=== PATIENT | female | born 1955 | race Caucasian/White ===

== ENCOUNTER 2019-03-27 12:09 | Emergency (ER) | payer MEDICARE ==
[~2019-03-27] VITALS: Ht 170.2 cm; Wt 80.0 kg
[2019-03-27 12:12] VITALS: BP 166/74
[2019-03-27] MEDS ORDERED: SULF1TAB49 PO (15:05)
== END 2019-03-27 15:31 | disposition home or self-care (01) ==
LOC: ER 12:10
DX: S81.801A Unspecified open wound, right lower leg, initial encounter (principal); L03.115 Cellulitis of right lower limb; Z79.2 Long term (current) use of antibiotics; Z85.3 Personal history of malignant neoplasm of breast; Z98.890 Other specified postprocedural states; X58.XXXA Exposure to other specified factors, initial encounter; Y93.89 Activity, other specified; Y92.89 Other specified places as the place of occurrence of the external cause; Y99.8 Other external cause status
CPT/HCPCS: 99283

== ENCOUNTER 2019-06-06 06:55 | Inpatient (IN) | payer MEDICARE ==
[~2019-06-06] VITALS: Ht 170.2 cm; Wt 82.7 kg
[2019-06-06] MEDS ORDERED: ondansetron/PF 4mg/2ml inj IV ONE (07:25)
[2019-06-06] MEDS ORDERED: vancomycin/NS 1 GM ADD-VANTAGE 250 ML IV ONE (07:25)
[2019-06-06] MEDS ORDERED: ondansetron 4mg rapidly disintigrating tab PO ONE (08:05)
--- NOTE | 2019-06-06 08:32 | NUR ---
picc nurse is coming in about 20 min. Pt aware. have attempted twice and only see one other decent vein when using the ultrasound machine on her left arm. pt refused to let me use her hand. her right arm is very swollen and red. pt has hx of bialteral mastectomy's times 2.
[2019-06-06] MEDS ORDERED: morphine 4 MG/ML inj SYRINge IM ONE (08:45)
[2019-06-06 09:21] LABS: BASOPHILS % (AUTO) 0.2 % (0-1); EOSINOPHILS % (AUTO) 0.1 % (0-6); HEMATOCRIT 41.4 % (35.0-45.0); HEMOGLOBIN 14.2 g/dl (12.0-16.0); LYMPHOCYTES # (AUTO) 0.8 X10'3 (1.1-4.8); LYMPHOCYTES % (AUTO) 5.4 % (21-51); MEAN CORPUSCULAR HEMOGLOBIN 33.6 PG (27.0-31.0); MEAN CORPUSCULAR HGB CONC 34.3 g/dL (33.0-36.5); MEAN PLATELET VOLUME 6.8 FL (7.4-10.4); MONOCYTES # (AUTO) 0.7 X10'3 (0-0.9); MONOCYTES % (AUTO) 5.2 % (2-12); NEUTROPHILS # (AUTO) 12.4 X10'3 (1.8-7.7); NEUTROPHILS % (AUTO) 89.1 % (42-75); PLATELET COUNT 235 X10'3 (140-440); RED BLOOD COUNT 4.22 X10'6 (4.20-5.60); RED CELL DISTRIBUTION WIDTH 13.2 % (11.5-14.5); WHITE BLOOD COUNT 13.9 X10'3 (4.5-11.0)
[2019-06-06] MEDS ORDERED: acetaminophen 325mg tablet PO ONE (09:35)
[2019-06-06 09:42] LABS: PARTIAL THROMBOPLASTIN TIME 27 SECONDS (22-32)
[2019-06-06 09:44] LABS: ALANINE AMINOTRANSFERASE 31 U/L (12-78); ALKALINE PHOSPHATASE 77 IU/L (46-116); ANION GAP 10 (8-16); ASPARTATE AMINO TRANSFERASE 22 U/L (10-37); BILIRUBIN,TOTAL 0.6 MG/DL (0.1-1.0); BLOOD UREA NITROGEN 9 MG/DL (7-18); BUN/CREATININE RATIO 11.7 (6.6-38.0); CALCIUM 8.9 MG/DL (8.5-10.1); CHLORIDE 102 MMOL/L (99-107); CREATININE 0.77 MG/DL (0.40-0.90); GLUCOSE 96 MG/DL (70-104); MAGNESIUM 1.8 MG/DL (1.5-2.4); POTASSIUM 3.6 MMOL/L (3.5-5.1); SODIUM 137 MMOL/L (135-145); TOTAL CARBON DIOXIDE 24.8 MMOL/L (24-32); TOTAL PROTEIN 7.9 G/DL (6.4-8.2); eGFR 75 ML/MIN
--- NOTE | 2019-06-06 09:51 | NUR ---
PT STATES HER ARM IS STARTING TO FEEL A LITTLE BETTER. GIVEN TYLENOL FOR FEVER.
--- NOTE | 2019-06-06 09:52 | NUR ---
PT WENT TO GET A URINE SAMPLE BUT WASN'T ABLE TO GET THE CAP OFF AND SO WAS NOT ABLE TO OBTAIN A SAMPLE.
[2019-06-06] MEDS ORDERED: ACET-2119 PO (10:40)
[2019-06-06] MEDS ORDERED: PRED5TAB PO (10:40)
[2019-06-06] MEDS ORDERED: metoclopramide 5 mg/ml inj IV PRN (10:55)
[2019-06-06] MEDS ORDERED: potassium Cl 20 mEq SR tablet PO PRN ×2 (10:55)
[2019-06-06] MEDS ORDERED: acetaminophen 325mg tablet PO PRN ×2 (10:55)
[2019-06-06] MEDS ORDERED: diphenhydrAMINE 25mg capsule PO PRN (10:55)
[2019-06-06] MEDS ORDERED: magnesium 2GM in 50ml NS 50 ML IV PRN (10:55)
[2019-06-06] MEDS ORDERED: mag hydrox/Alum hydrox/simeth 30ml oral suspension PO PRN (10:55)
[2019-06-06] MEDS ORDERED: magnesium Cl slow-release 64mg tablet PO PRN (10:55)
[2019-06-06] MEDS ORDERED: HYDROcodone/acetaminophen 5mg/325mg tablet PO PRN (10:55)
[2019-06-06] MEDS ORDERED: bisacodyl 10mg suppository rectal RC PRN (10:55)
[2019-06-06] MEDS ORDERED: magnesium hydroxide 30ml (MOM) UD suspension PO PRN (10:55)
[2019-06-06] MEDS ORDERED: magnesium 4gm in 100ml NS 100 ML IV PRN (10:55)
[2019-06-06] MEDS ORDERED: potassium CL 10mEq/100ml bag 100 ML IV PRN ×2 (10:55)
[2019-06-06] MEDS ORDERED: diphenhydrAMINE 50 mg/ml inj IV PRN (10:55)
[2019-06-06 11:35] LABS: PHOSPHORUS 2.5 MG/DL (2.3-4.5)
[2019-06-06] MEDS: normal saline 1000ml 1,000 ML IV SCH ×2 (11:55→20:54)
[2019-06-06] MEDS ORDERED: ASCO500C15 PO (13:00)
[2019-06-06] MEDS ORDERED: CHOL100046 PO (13:00)
[2019-06-06] MEDS ORDERED: ASPI-611 PO (13:00)
[2019-06-06] MEDS ORDERED: PRED20TA PO (13:00)
[2019-06-06 14:00] VITALS: BP 117/73
--- NOTE | 2019-06-06 14:45 | NUR ---
Patient in room [facility]. I have received report from NOMI So and had the opportunity to ask questions and assume patient care.
[2019-06-06 17:34] LABS: CLARITY,URINE CLEAR (Clear); COLOR,URINE YELLOW (Yellow); GLUCOSE, URINE NEGATIVE (Neg); KETONES,URINE NEGATIVE (Neg); LEUKOCYTE ESTERASE ,URINE TRACE (Neg); NITRITES, URINE NEGATIVE (Neg); OCCULT BLOOD,URINE NEGATIVE (Neg); PROTEIN,URINE NEGATIVE (Neg); UROBILINOGEN,URINE 0.2 E.U/dL (0.2-1.0)
[2019-06-06 17:38] LABS: URINE AMPHETAMINE SCREEN NEGATIVE (Neg); URINE BARBITUATE SCREEN NEGATIVE (Neg); URINE BENZODIAZEPINES SCREEN NEGATIVE (Neg); URINE CANNABINOID SCREEN NEGATIVE (Neg); URINE COCAINE SCREEN NEGATIVE (Neg); URINE METHADONE SCREEN NEGATIVE (Neg); URINE OPIATE SCREEN POSITIVE (Neg); URINE PHENCYCLIDINE SCREEN NEGATIVE (Neg)
[2019-06-06 17:40] LABS: UA COLLECTION TYPE NON-SPECIFIED
[2019-06-06 18:00] VITALS: BP 123/74
[2019-06-06 18:16] LABS: MUCUS STRANDS FEW /LPF (Neg); SQUAMOUS EPITHELIAL CELL,UR FEW /LPF (FEW)
[2019-06-06 18:20] LABS: BACTERIA,URINE 1+ /HPF (Neg); RBC,URINE 0-2 /HPF (0-2); WBC,URINE 0-4 /HPF (0-4)
--- NOTE | 2019-06-06 18:40 | NUR ---
Patient in room [facility]. I have received report from NOMI Mcfarland and had the opportunity to ask questions and assume patient care.
[2019-06-06] MEDS: HYDROcodone/acetaminophen 10/325mg tab PO PRN (19:01)
[2019-06-06] MEDS: ondansetron/PF 4mg/2ml inj IV PRN (19:01)
--- NOTE | 2019-06-06 19:02 | NUR ---
Problems reprioritized. Patient report given, questions answered & plan of care reviewed with Frank MOSHER.
[2019-06-06] MEDS: VANCOmycin 1250MG/NS 250ml Bag 250 ML IV SCH (20:12)
[2019-06-06] MEDS ORDERED: temazepam 15mg capsule PO PRN (21:00)
[2019-06-07] VITALS: BP 96/50
[2019-06-07 06:24] LABS: BASOPHILS % (AUTO) 0.5 % (0-1); EOSINOPHILS # (AUTO) 0.1 X10'3 (0-0.9); EOSINOPHILS % (AUTO) 0.9 % (0-6); HEMATOCRIT 35.1 % (35.0-45.0); HEMOGLOBIN 12.2 g/dl (12.0-16.0); LYMPHOCYTES # (AUTO) 1.3 X10'3 (1.1-4.8); LYMPHOCYTES % (AUTO) 17.6 % (21-51); MEAN CORPUSCULAR HEMOGLOBIN 34.3 PG (27.0-31.0); MEAN CORPUSCULAR HGB CONC 34.8 g/dL (33.0-36.5); MEAN CORPUSCULAR VOLUME 98.5 FL (78-98); MEAN PLATELET VOLUME 6.6 FL (7.4-10.4); MONOCYTES # (AUTO) 0.9 X10'3 (0-0.9); MONOCYTES % (AUTO) 11.7 % (2-12); NEUTROPHILS # (AUTO) 5.1 X10'3 (1.8-7.7); NEUTROPHILS % (AUTO) 69.3 % (42-75); PLATELET COUNT 186 X10'3 (140-440); RED BLOOD COUNT 3.56 X10'6 (4.20-5.60); RED CELL DISTRIBUTION WIDTH 13.3 % (11.5-14.5); WHITE BLOOD COUNT 7.4 X10'3 (4.5-11.0)
--- NOTE | 2019-06-07 06:39 | NUR ---
Problems reprioritized. Patient report given, questions answered & plan of care reviewed with NOMI Rosa.
--- NOTE | 2019-06-07 06:49 | NUR ---
Patient in room [facility]. I have received report from Frank MOSHER and had the opportunity to ask questions and assume patient care.
[2019-06-07 07:00] VITALS: BP 118/66
[2019-06-07 07:13] LABS: ALANINE AMINOTRANSFERASE 22 U/L (12-78); ALBUMIN 2.8 G/DL (3.4-5.0); ALBUMIN/GLOBULIN RATIO 0.9 (1.1-1.5); ALKALINE PHOSPHATASE 54 IU/L (46-116); ANION GAP 9 (8-16); ASPARTATE AMINO TRANSFERASE 15 U/L (10-37); BILIRUBIN,TOTAL 0.6 MG/DL (0.1-1.0); BLOOD UREA NITROGEN 11 MG/DL (7-18); BUN/CREATININE RATIO 12.8 (6.6-38.0); CHLORIDE 107 MMOL/L (99-107); CHOL/HDL RATIO 2.9 (0.00-4.99); CHOLESTEROL 159 MG/DL (0-200); CREATININE 0.86 MG/DL (0.40-0.90); GLUCOSE 93 MG/DL (70-104); HDL CHOLESTEROL 54 MG/DL (35-60); LDL CHOLESTEROL 103 MG/DL (50-100); MAGNESIUM 1.8 MG/DL (1.5-2.4); POTASSIUM 3.7 MMOL/L (3.5-5.1); SODIUM 140 MMOL/L (135-145); TRIGLYCERIDES 50 MG/DL (20-135); eGFR 66 ML/MIN
[2019-06-07] MEDS: enoxaparin 40mg/0.4ml syringe SUBCUT SCH (07:33)
[2019-06-07] MEDS: aspirin 81mg tablet.DR PO SCH (07:35)
[2019-06-07] MEDS: K and/or MAG REPLACEMENT MC SCH (08:00)
[2019-06-07] MEDS: VANCOmycin 1250MG/NS 250ml Bag 250 ML IV SCH ×2 (09:08→20:33)
[2019-06-07] MEDS: HYDROcodone/acetaminophen 10/325mg tab PO PRN (10:25)
[2019-06-07 10:52] VITALS: BP 135/73
[2019-06-07] MEDS: normal saline 1000ml 1,000 ML IV SCH ×2 (14:18→16:54)
--- NOTE | 2019-06-07 18:04 | NUR ---
Problems reprioritized. Patient report given, questions answered & plan of care reviewed with Frank MOSHER.
[2019-06-07 19:00] VITALS: BP 136/80
[2019-06-07] MEDS: lactobacillus rhamnosus 10,000 MMU CELLS/CAPSULE PO SCH (20:33)
[2019-06-08] VITALS: BP 129/64
[2019-06-08] MEDS: ondansetron/PF 4mg/2ml inj IV PRN (00:08)
[2019-06-08] MEDS: HYDROcodone/acetaminophen 10/325mg tab PO PRN ×2 (01:11→19:23)
[2019-06-08] MEDS: normal saline 1000ml 1,000 ML IV SCH ×3 (02:54→22:54)
[2019-06-08 07:00] VITALS: BP 128/70
--- NOTE | 2019-06-08 07:04 | NUR ---
Patient in room [facility]. I have received report from Frank MOSHER and had the opportunity to ask questions and assume patient care.
[2019-06-08] MEDS: K and/or MAG REPLACEMENT MC SCH (08:00)
[2019-06-08] MEDS ORDERED: VANCOMYCIN LEVEL IV ONE (08:30)
[2019-06-08] MEDS: VANCOmycin 1250MG/NS 250ml Bag 250 ML IV SCH ×2 (09:25→22:27)
[2019-06-08] MEDS: aspirin 81mg tablet.DR PO SCH (09:26)
[2019-06-08] MEDS: lactobacillus rhamnosus 10,000 MMU CELLS/CAPSULE PO SCH ×2 (09:26→19:24)
[2019-06-08 09:28] LABS: BASOPHILS % (AUTO) 0.4 % (0-1); EOSINOPHILS # (AUTO) 0.1 X10'3 (0-0.9); EOSINOPHILS % (AUTO) 2.2 % (0-6); HEMATOCRIT 35.6 % (35.0-45.0); HEMOGLOBIN 12.2 g/dl (12.0-16.0); LYMPHOCYTES # (AUTO) 1.3 X10'3 (1.1-4.8); LYMPHOCYTES % (AUTO) 23.6 % (21-51); MEAN CORPUSCULAR HEMOGLOBIN 33.6 PG (27.0-31.0); MEAN CORPUSCULAR HGB CONC 34.4 g/dL (33.0-36.5); MEAN CORPUSCULAR VOLUME 97.5 FL (78-98); MEAN PLATELET VOLUME 6.6 FL (7.4-10.4); MONOCYTES # (AUTO) 0.6 X10'3 (0-0.9); MONOCYTES % (AUTO) 10.9 % (2-12); NEUTROPHILS # (AUTO) 3.5 X10'3 (1.8-7.7); NEUTROPHILS % (AUTO) 62.9 % (42-75); PLATELET COUNT 193 X10'3 (140-440); RED BLOOD COUNT 3.65 X10'6 (4.20-5.60); RED CELL DISTRIBUTION WIDTH 13.3 % (11.5-14.5); WHITE BLOOD COUNT 5.5 X10'3 (4.5-11.0)
[2019-06-08 09:31] LABS: ALANINE AMINOTRANSFERASE 23 U/L (12-78); ALBUMIN 2.8 G/DL (3.4-5.0); ALBUMIN/GLOBULIN RATIO 0.8 (1.1-1.5); ANION GAP 7 (8-16); ASPARTATE AMINO TRANSFERASE 15 U/L (10-37); BILIRUBIN,TOTAL 0.4 MG/DL (0.1-1.0); BLOOD UREA NITROGEN 8 MG/DL (7-18); BUN/CREATININE RATIO 9.8 (6.6-38.0); CALCIUM 8.4 MG/DL (8.5-10.1); CHLORIDE 109 MMOL/L (99-107); CREATININE 0.82 MG/DL (0.40-0.90); GLUCOSE 102 MG/DL (70-104); MAGNESIUM 1.9 MG/DL (1.5-2.4); PHOSPHORUS 2.8 MG/DL (2.3-4.5); POTASSIUM 3.6 MMOL/L (3.5-5.1); SODIUM 142 MMOL/L (135-145); TOTAL CARBON DIOXIDE 26.4 MMOL/L (24-32); TOTAL PROTEIN 6.3 G/DL (6.4-8.2); eGFR 70 ML/MIN
[2019-06-08 09:41] LABS: ALKALINE PHOSPHATASE 52 IU/L (46-116)
[2019-06-08] MEDS: enoxaparin 40mg/0.4ml syringe SUBCUT SCH (10:31)
[2019-06-08 11:00] VITALS: BP 139/77
--- NOTE | 2019-06-08 18:29 | NUR ---
Problems reprioritized. Patient report given, questions answered & plan of care reviewed with Pura RN and Janett RN.
--- NOTE | 2019-06-08 18:34 | NUR ---
Patient in room [facility]. I have received report from NOMI Rosa and had the opportunity to ask questions and assume patient care.
[2019-06-08 19:00] VITALS: BP 162/79
[2019-06-09] VITALS: BP 129/72
[2019-06-09] MEDS: HYDROcodone/acetaminophen 10/325mg tab PO PRN ×3 (05:17→22:09)
[2019-06-09 06:21] LABS: ALANINE AMINOTRANSFERASE 25 U/L (12-78); ALBUMIN 2.9 G/DL (3.4-5.0); ALBUMIN/GLOBULIN RATIO 0.8 (1.1-1.5); ALKALINE PHOSPHATASE 55 IU/L (46-116); ANION GAP 8 (8-16); ASPARTATE AMINO TRANSFERASE 20 U/L (10-37); BILIRUBIN,TOTAL 0.5 MG/DL (0.1-1.0); BLOOD UREA NITROGEN 5 MG/DL (7-18); BUN/CREATININE RATIO 6.8 (6.6-38.0); CALCIUM 8.5 MG/DL (8.5-10.1); CHLORIDE 109 MMOL/L (99-107); CREATININE 0.74 MG/DL (0.40-0.90); GLUCOSE 93 MG/DL (70-104); MAGNESIUM 1.9 MG/DL (1.5-2.4); PHOSPHORUS 3.6 MG/DL (2.3-4.5); POTASSIUM 3.6 MMOL/L (3.5-5.1); SODIUM 142 MMOL/L (135-145); TOTAL CARBON DIOXIDE 25.4 MMOL/L (24-32); TOTAL PROTEIN 6.4 G/DL (6.4-8.2); eGFR 79 ML/MIN
[2019-06-09 06:25] LABS: BASOPHILS % (AUTO) 0.4 % (0-1); EOSINOPHILS # (AUTO) 0.2 X10'3 (0-0.9); EOSINOPHILS % (AUTO) 3.3 % (0-6); HEMOGLOBIN 12.5 g/dl (12.0-16.0); LYMPHOCYTES # (AUTO) 1.4 X10'3 (1.1-4.8); MEAN CORPUSCULAR HEMOGLOBIN 34.2 PG (27.0-31.0); MEAN CORPUSCULAR HGB CONC 34.8 g/dL (33.0-36.5); MEAN CORPUSCULAR VOLUME 98.1 FL (78-98); MEAN PLATELET VOLUME 6.9 FL (7.4-10.4); MONOCYTES # (AUTO) 0.5 X10'3 (0-0.9); MONOCYTES % (AUTO) 10.5 % (2-12); NEUTROPHILS # (AUTO) 2.5 X10'3 (1.8-7.7); NEUTROPHILS % (AUTO) 54.8 % (42-75); PLATELET COUNT 212 X10'3 (140-440); RED BLOOD COUNT 3.67 X10'6 (4.20-5.60); WHITE BLOOD COUNT 4.7 X10'3 (4.5-11.0)
--- NOTE | 2019-06-09 06:30 | NUR ---
Patient in room [facility]. I have received report from BARBI MOSHER and had the opportunity to ask questions and assume patient care.
--- NOTE | 2019-06-09 06:41 | NUR ---
Problems reprioritized. Patient report given, questions answered & plan of care reviewed with NOMI Smith.
--- NOTE | 2019-06-09 06:53 | NUR ---
Patient in room [facility]. I have received report from the Night nurses and had the opportunity to ask questions and assume patient care.
[2019-06-09 08:00] VITALS: BP 141/83
[2019-06-09] MEDS: enoxaparin 40mg/0.4ml syringe SUBCUT SCH (08:00)
[2019-06-09] MEDS: K and/or MAG REPLACEMENT MC SCH (08:00)
[2019-06-09 08:30] VITALS: BP 141/83
[2019-06-09] MEDS: normal saline 1000ml 1,000 ML IV SCH (08:54)
[2019-06-09] MEDS: aspirin 81mg tablet.DR PO SCH (09:00)
[2019-06-09] MEDS: lactobacillus rhamnosus 10,000 MMU CELLS/CAPSULE PO SCH ×2 (09:00→19:17)
--- NOTE | 2019-06-09 09:56 | NUR ---
Student Medication Administration: For this medication-pass time frame, all medication were reviewed, dispensed, administered and documented per hospital policy by Julienne nursing manager.
[2019-06-09 11:00] VITALS: BP 150/78
--- NOTE | 2019-06-09 11:40 | NUR ---
Student documentation: I have reviewed and agree with all interventions, assessments performed and documented by Julienne, nursing program manager.
[2019-06-09 12:08] VITALS: BP 168/87
--- NOTE | 2019-06-09 12:09 | NUR ---
Problems reprioritized. Patient report given, questions answered & plan of care reviewed with NOMI Smith.
[2019-06-09] MEDS: VANCOmycin 1250MG/NS 250ml Bag 250 ML IV SCH ×2 (12:30→22:09)
--- NOTE | 2019-06-09 18:30 | NUR ---
Problems reprioritized. Patient report given, questions answered & plan of care reviewed with BARBI MOSHER.
--- NOTE | 2019-06-09 18:53 | NUR ---
Patient in room [facility]. I have received report from NOMI Smith and had the opportunity to ask questions and assume patient care.
[2019-06-09 19:00] VITALS: BP 151/75
[2019-06-10] VITALS: BP 150/84
[2019-06-10 05:42] LABS: BASOPHILS % (AUTO) 0.6 % (0-1); EOSINOPHILS # (AUTO) 0.2 X10'3 (0-0.9); HEMATOCRIT 39.5 % (35.0-45.0); HEMOGLOBIN 13.6 g/dl (12.0-16.0); LYMPHOCYTES # (AUTO) 1.6 X10'3 (1.1-4.8); LYMPHOCYTES % (AUTO) 32.3 % (21-51); MEAN CORPUSCULAR HEMOGLOBIN 33.8 PG (27.0-31.0); MEAN CORPUSCULAR HGB CONC 34.4 g/dL (33.0-36.5); MEAN CORPUSCULAR VOLUME 98.1 FL (78-98); MEAN PLATELET VOLUME 6.8 FL (7.4-10.4); MONOCYTES # (AUTO) 0.6 X10'3 (0-0.9); MONOCYTES % (AUTO) 11.2 % (2-12); NEUTROPHILS # (AUTO) 2.6 X10'3 (1.8-7.7); NEUTROPHILS % (AUTO) 51.9 % (42-75); PLATELET COUNT 235 X10'3 (140-440); RED BLOOD COUNT 4.03 X10'6 (4.20-5.60); RED CELL DISTRIBUTION WIDTH 12.9 % (11.5-14.5); WHITE BLOOD COUNT 5.1 X10'3 (4.5-11.0)
[2019-06-10 05:53] LABS: ALANINE AMINOTRANSFERASE 33 U/L (12-78); ALBUMIN 3.1 G/DL (3.4-5.0); ALBUMIN/GLOBULIN RATIO 0.8 (1.1-1.5); ALKALINE PHOSPHATASE 60 IU/L (46-116); ANION GAP 7 (8-16); ASPARTATE AMINO TRANSFERASE 26 U/L (10-37); BILIRUBIN,TOTAL 0.5 MG/DL (0.1-1.0); BLOOD UREA NITROGEN 8 MG/DL (7-18); BUN/CREATININE RATIO 10.3 (6.6-38.0); CHLORIDE 109 MMOL/L (99-107); CREATININE 0.78 MG/DL (0.40-0.90); GLUCOSE 91 MG/DL (70-104); PHOSPHORUS 4.5 MG/DL (2.3-4.5); POTASSIUM 3.9 MMOL/L (3.5-5.1); SODIUM 144 MMOL/L (135-145); TOTAL PROTEIN 6.9 G/DL (6.4-8.2); eGFR 74 ML/MIN
--- NOTE | 2019-06-10 06:44 | NUR ---
Problems reprioritized. Patient report given, questions answered & plan of care reviewed with NOMI Little.
--- NOTE | 2019-06-10 06:50 | NUR ---
Patient in room [facility]. I have received report from Junie Sanchez RN and had the opportunity to ask questions and assume patient care.
--- NOTE | 2019-06-10 06:57 | NUR ---
Problems reprioritized. Patient report given, questions answered & plan of care reviewed with NOMI Little.
[2019-06-10 08:00] VITALS: BP 148/80
[2019-06-10] MEDS: K and/or MAG REPLACEMENT MC SCH (08:00)
[2019-06-10] MEDS: enoxaparin 40mg/0.4ml syringe SUBCUT SCH (08:00)
[2019-06-10] MEDS: lactobacillus rhamnosus 10,000 MMU CELLS/CAPSULE PO SCH (09:09)
[2019-06-10] MEDS: aspirin 81mg tablet.DR PO SCH (09:09)
[2019-06-10] MEDS: VANCOmycin 1250MG/NS 250ml Bag 250 ML IV SCH (09:09)
[2019-06-10] MEDS ORDERED: SULF1TAB49 PO (11:06)
[2019-06-10 12:00] VITALS: BP 154/89
--- NOTE | 2019-06-10 12:38 | NUR ---
Patient discharged and transported to her friend's vehicle via wheelchair, pisano in patient's hands, and assisted by nursing staff. Patient IV out, all belongings sent with patient.
== END 2019-06-10 12:15 | disposition home or self-care (01) | DRG 872 ==
LOC: ER 06:56 → ED HOLD 11:09 → EDBEDREQ 13:11 → SUR 3N 14:04
PROVIDERS: ADMIT Family Medicine; ATTEND Family Medicine
DX: A41.9 Sepsis, unspecified organism (principal); L03.113 Cellulitis of right upper limb; E78.5 Hyperlipidemia, unspecified; I10 Essential (primary) hypertension; I89.0 Lymphedema, not elsewhere classified; K21.9 Gastro-esophageal reflux disease without esophagitis; K58.9 Irritable bowel syndrome, unspecified; Z85.3 Personal history of malignant neoplasm of breast; Z85.819 Personal history of malignant neoplasm of unspecified site of lip, oral cavity, and pharynx; Z86.14 Personal history of Methicillin resistant Staphylococcus aureus infection; Z91.041 Radiographic dye allergy status; Z87.891 Personal history of nicotine dependence; Z90.13 Acquired absence of bilateral breasts and nipples
CPT/HCPCS: 36415; 71045; 73200; 76937; 80053; 80061; 80202; 80305; 81001; 83605; 83735; 84100; 84145; 85025; 85610; 85730; 87040; 87081; 87088; 93971; 96365; 96366; 96372; 96375; 99285; G0378; J1650; J2270; J2405; J3370; J7030

== ENCOUNTER 2019-06-13 11:37 | Emergency (ER) | payer MEDICARE ==
[~2019-06-13] VITALS: Ht 170.2 cm; Wt 82.5 kg
[~2019-06-13 11:37] MED LIST: ACET-2119 PO; ASCO500C15 PO; ASPI-611 PO; CHOL100046 PO; PRED20TA PO; SULF1TAB49 PO
[2019-06-13 11:56] VITALS: BP 164/87
[2019-06-13] MEDS ORDERED: MAGN296S50 PO (14:25)
== END 2019-06-13 14:48 | disposition home or self-care (01) ==
LOC: ER 11:38
DX: K59.00 Constipation, unspecified (principal); Z98.890 Other specified postprocedural states; Z79.82 Long term (current) use of aspirin; Z79.899 Other long term (current) drug therapy
CPT/HCPCS: 99282